=== PATIENT | female | born 1970 | race Caucasian/White ===

== ENCOUNTER 2017-12-01 23:10 | Inpatient (IN) | payer OTHER, MEDICAID ==
[~2017-12-01] VITALS: Ht 162.6 cm; Wt 72.6 kg
[2017-12-01 23:12] VITALS: Ht 162.6 cm; Wt 72.6 kg
[2017-12-02 00:11] LABS: CALCIUM 8.4 mg/dL (8.5-10.1); CARBON DIOXIDE 27.5 mmol/L (21-32); CHLORIDE SERUM 105 mmol/L (98-107); CREATININE SERUM 0.6 mg/dL (0.6-1.0); GFR1 > 60 mL/min; GLUCOSE SERUM 142 mg/dL (74-106); POTASSIUM SERUM 3.7 mmol/L (3.5-5.1); SODIUM SERUM 139 mmol/L (136-145)
[2017-12-02 00:15] LABS: ALKALINE PHOSPHATASE 70 U/L (46-116); ALT/SGPT 26 U/L (14-59); AST/SGOT 16 U/L (15-37); BILIRUBIN TOTAL 0.2 mg/dL (0.20-1.00); TOTAL PROTEIN, SERUM 6.4 g/dL (6.4-8.2)
[2017-12-02 00:16] LABS: BASOPHIL % 0.4 % (0-2)
[2017-12-02 00:17] LABS: ALBUMIN 3.3 g/dL (3.4-5.0)
[2017-12-02 00:18] LABS: PLATELET COUNT 164 x10^3mcL (130-400)
[2017-12-02 00:20] LABS: RED CELL DISTRIBUTION WIDTH 14.9 % (11.5-14.5)
[2017-12-02 01:28] LABS: microscopic required? YES; urine erythrocyte 3+ (NEGATIVE)
[2017-12-02 01:35] LABS: AMPHETAMINE QUAL UR NONE DETECTED (See below)
[2017-12-02 02:46] LABS: FREE T4 1.1 ng/dL (0.76-1.46)
[2017-12-02 03:48] LABS: PHOSPHOROUS 3.6 mg/dL (2.5-4.9)
[2017-12-02 03:57] VITALS: BP 100/57
[2017-12-02 09:38] VITALS: BP 100/50
[2017-12-02 17:22] VITALS: BP 92/55
[2017-12-02 20:30] VITALS: BP 100/57
[2017-12-03 00:26] VITALS: BP 102/59
[2017-12-03 04:53] VITALS: BP 95/51
[2017-12-03 08:08] VITALS: BP 96/53
[2017-12-03 18:54] VITALS: BP 92/46
[2017-12-03 20:52] VITALS: BP 110/64
[2017-12-04 04:43] VITALS: BP 90/46
[2017-12-04 08:52] VITALS: BP 96/49
[2017-12-04 17:39] VITALS: BP 94/42
[2017-12-04 20:53] VITALS: BP 103/61
[2017-12-05 05:51] VITALS: BP 108/60
[2017-12-05 08:06] VITALS: BP 107/60
[2017-12-05 11:39] VITALS: BP 99/59
[2017-12-05 17:29] VITALS: BP 115/67
[2017-12-05 21:29] VITALS: BP 118/64
[2017-12-06 06:20] LABS: CALCIUM 9.4 mg/dL (8.5-10.1); CARBON DIOXIDE 26.3 mmol/L (21-32); CHLORIDE SERUM 106 mmol/L (98-107); CREATININE SERUM 0.7 mg/dL (0.6-1.0); GFR1 > 60 mL/min; GLUCOSE SERUM 86 mg/dL (74-106); MAGNESIUM 2.1 mg/dL (1.8-2.4); PHOSPHOROUS 4.7 mg/dL (2.5-4.9); SODIUM SERUM 140 mmol/L (136-145)
[2017-12-06 06:52] LABS: BASOPHIL % 0.7 % (0-2); PLATELET COUNT 169 x10^3mcL (130-400)
[2017-12-06 06:53] LABS: RED CELL DISTRIBUTION WIDTH 15.7 % (11.5-14.5)
[2017-12-06 08:54] VITALS: BP 93/50
[2017-12-06 17:34] VITALS: BP 99/45
[2017-12-06 19:49] VITALS: BP 123/73
[2017-12-07 05:44] VITALS: BP 102/60
[2017-12-07 11:05] VITALS: BP 100/55
[2017-12-07 17:31] VITALS: BP 107/53
[2017-12-07 22:08] VITALS: BP 106/64
[2017-12-08 05:57] VITALS: BP 99/68
[2017-12-08 08:45] VITALS: BP 99/60
[2017-12-08 12:46] VITALS: BP 103/61
[2017-12-08 12:47] VITALS: BP 129/78
[2017-12-08 16:49] VITALS: BP 102/52
[2017-12-08 20:08] VITALS: BP 101/71
[2017-12-09 08:29] VITALS: BP 107/70
[2017-12-09 15:52] VITALS: BP 109/68
[2017-12-09 20:50] VITALS: BP 98/56
[2017-12-10 05:50] VITALS: BP 101/59
[2017-12-10 08:36] VITALS: BP 100/58
[2017-12-10 17:30] VITALS: BP 99/60
[2017-12-10 21:10] VITALS: BP 125/77
[2017-12-11 06:00] VITALS: BP 106/63
[2017-12-11 08:55] VITALS: BP 132/60
[2017-12-11 17:33] VITALS: BP 132/63
[2017-12-11 20:31] VITALS: BP 90/36
[2017-12-12 05:43] VITALS: BP 99/69
[2017-12-12 08:08] VITALS: BP 101/51
[2017-12-12 17:12] VITALS: BP 102/71
[2017-12-12 20:56] VITALS: BP 110/58
[2017-12-13] VITALS (7 sets, daily range): BP systolic 94–143; BP diastolic 39–69
[2017-12-13] MEDS ORDERED: QUETIAPINE FUMA25 M1 PO (22:34)
== END 2017-12-14 00:22 | DRG 885 ==
LOC: ED 23:10 → MU 12-02 02:56
PROVIDERS: Emergency Medicine; Internal Medicine
DX: F23 Brief psychotic disorder (principal); G93.41 Metabolic encephalopathy; N39.0 Urinary tract infection, site not specified; E44.1 Mild protein-calorie malnutrition; D64.9 Anemia, unspecified; Z68.27 Body mass index [BMI] 27.0-27.9, adult
CPT/HCPCS: 83880; 84439; G0480; J0696; J7030

== ENCOUNTER 2018-03-13 18:09 | Inpatient (IN) | payer OTHER, MEDICAID ==
[~2018-03-13] VITALS: Ht 162.6 cm; Wt 79.0 kg
[~2018-03-13 18:09] MED LIST: QUETIAPINE FUMA25 M1 PO
[2018-03-13 18:22] VITALS: Ht 162.6 cm; Wt 79.0 kg
[2018-03-13 18:46] LABS: BASOPHIL % 0.5 % (0-2); PLATELET COUNT 196 x10^3mcL (130-400)
[2018-03-13 18:47] LABS: RED CELL DISTRIBUTION WIDTH 16.3 % (11.5-14.5)
[2018-03-13 18:51] LABS: CALCIUM 8.8 mg/dL (8.5-10.1); CARBON DIOXIDE 26.4 mmol/L (21-32); CHLORIDE SERUM 106 mmol/L (98-107); CREATININE SERUM 0.7 mg/dL (0.6-1.0); GFR1 > 60 mL/min; GLUCOSE SERUM 130 mg/dL (74-106); POTASSIUM SERUM 3.9 mmol/L (3.5-5.1); SODIUM SERUM 140 mmol/L (136-145)
[2018-03-13 18:56] LABS: ALKALINE PHOSPHATASE 83 U/L (46-116); ALT/SGPT 43 U/L (14-59); AST/SGOT 14 U/L (15-37); BILIRUBIN TOTAL 0.1 mg/dL (0.20-1.00); TOTAL PROTEIN, SERUM 6.3 g/dL (6.4-8.2)
[2018-03-13 19:06] LABS: ALBUMIN 2.9 g/dL (3.4-5.0)
[2018-03-13 20:57] LABS: microscopic required? YES; urine erythrocyte NEGATIVE (NEGATIVE)
[2018-03-13 21:12] LABS: AMPHETAMINE QUAL UR NONE DETECTED (See below)
[2018-03-14] MEDS ORDERED: PROZAC40 MG (00:45)
[2018-03-14 01:21] LABS: T3 TOTAL 1.07 ng/mL
[2018-03-14 01:23] LABS: MAGNESIUM 2.1 mg/dL (1.8-2.4); PHOSPHOROUS 4.8 mg/dL (2.5-4.9)
[2018-03-14 01:26] LABS: CHOLESTEROL/HDL RATIO 2.8
[2018-03-14 01:27] LABS: FREE T4 1.01 ng/dL (0.76-1.46); FREE THYROXINE INDEX 2.8 ug/dL (1.4-4.5); T4(THYROXINE) 7.7 ug/dL (4.7-13.3)
[2018-03-14 08:05] LABS: TOTAL IRON BINDING CAPACITY 277 ug/dL (250-450)
[2018-03-14 08:06] LABS: IRON 26 ug/dL (50-170)
[2018-03-14 12:08] LABS: RED BLOOD CELLS 3.75 M/mm3 (4.10-5.10)
[2018-03-14 13:55] VITALS: BP 114/69
[2018-03-14 16:06] VITALS: BP 83/35
[2018-03-14 18:04] VITALS: BP 95/51
[2018-03-14 21:15] VITALS: BP 91/49
[2018-03-15 06:57] VITALS: BP 112/41
[2018-03-15 08:32] VITALS: BP 98/51
[2018-03-15 14:16] VITALS: BP 99/54
[2018-03-15 17:47] VITALS: BP 91/52
[2018-03-15 20:40] VITALS: BP 100/60
[2018-03-16 04:12] VITALS: BP 106/50
[2018-03-16 08:16] VITALS: BP 83/44
[2018-03-16 13:27] VITALS: BP 85/50
[2018-03-16 16:48] VITALS: BP 103/56
[2018-03-16 20:10] VITALS: BP 90/53
[2018-03-17 01:46] VITALS: BP 83/42
[2018-03-17 05:06] VITALS: BP 96/48
[2018-03-17 12:08] VITALS: BP 93/43
[2018-03-17 13:00] VITALS: BP 93/43
[2018-03-17 18:04] VITALS: BP 91/62
[2018-03-17 20:06] VITALS: BP 92/36
[2018-03-18 05:48] VITALS: BP 88/45
[2018-03-18 09:34] VITALS: BP 92/52
[2018-03-18 12:13] VITALS: BP 92/58
[2018-03-18 18:24] VITALS: BP 101/70
[2018-03-18 19:56] VITALS: BP 95/62
[2018-03-19 05:05] VITALS: BP 92/57
[2018-03-19 08:00] VITALS: BP 90/57
[2018-03-19 12:30] VITALS: BP 93/60
[2018-03-19] MEDS ORDERED: ABILIFY10 M2 PO (15:22)
[2018-03-19 15:47] VITALS: BP 93/60
== END 2018-03-19 19:37 | DRG 885 ==
LOC: ED 18:09 → DU 03-14 00:17 → MU 03-19 15:05
PROVIDERS: Specialist; ADMIT Internal Medicine
DX: F32.3 Major depressive disorder, single episode, severe with psychotic features (principal); G93.41 Metabolic encephalopathy; N39.0 Urinary tract infection, site not specified; E44.0 Moderate protein-calorie malnutrition; D64.9 Anemia, unspecified; Z68.24 Body mass index [BMI] 24.0-24.9, adult; F17.210 Nicotine dependence, cigarettes, uncomplicated
CPT/HCPCS: 83880; 84439; G0480; J0696; J7030; Q0092